=== PATIENT | female | born 1975 | race Caucasian/White ===

== ENCOUNTER 2020-01-19 10:28 | Inpatient (IN) | payer SELFPAY ==
[2020-01-19] VITALS (32 sets, daily range): BP systolic 98–130; BP diastolic 49–83; PULSE 65–87; RESP 16–34; TEMP 36.6–36.8; O2SAT 90–99; BMI 25.2
--- NOTE | 2020-01-19 11:04 | ED_ITS ---
HPI - Female Genitourinary General: Chief complaint: Urogenital-Female Stated complaint: BEHAVIORAL POSSIBLE UTI Time Seen by Provider: 01/19/20 10:30 History of Present Illness: HPI Narrative: This patient is a 44-year-old female who was transferred here from [place] emergency room. She was sent for admission due to a UTI and an elevated white count. She initially presented to the [facility] emergency department due to altered mental status, psychosis, substance abuse. There are multiple affidavits on the chart regarding statements of suicidal and homicidal ideation although the patient currently denies that. She remains confused and inconsistent with her answers. She says that she has used meth and bath salts which were given to her by her . She also is complaining of some abdominal discomfort which she says is related to having diarrhea. She does have some dysuria and vaginal discomfort. She is willing to be admitted for treatment. MD elicited complaint: UTI Review of Systems General: Reports: ROS unobtainable due to mental status (Psychotic) Physical Exam Const: COMMON NORMALS: no acute distress, no limitations and alert EXAM LIMITATIONS: other limitations (Delusional, reported to be having hallucinations at the [facility].) GENERAL APPEARANCE: cooperative, comfortable and other (Fidgety) ORIENTATION/CONSCIOUSNESS: Yes oriented to person, Yes oriented to place, Yes oriented to time and Yes confused HENMT: HEAD & SCALP: normal to inspection FACE & SINUS: normal facial exam Eye: GENERAL EYE: appearance normal, both eyes and all related structures Neck/C-Spine: COMMON NORMALS: supple, no meningeal signs and no JVD Chest: COMMONS NORMALS: normal inspection of the chest Resp: COMMON NORMALS: normal respiratory effort, No use of accessory muscles and clear to auscultation bilaterally AUSCULTATION: clear to auscultation bilaterally Cardio: COMMON NORMALS: no JVD, regular rate, regular rhythm and No murmurs present (Cardio) RATE: regular rate RHYTHM: regular rhythm GI: COMMON NORMALS: Normal to inspection, nondistended, normoactive bowel sounds present, Soft to palpation and non-tender INSPECTION: Yes normal to inspection AUSCULTATION: Yes normoactive bowel sounds PALPATION: Yes Soft to palpation and Yes Tenderness to palpation present (GI) (Mild, diffuse) Back/Pelvis: COMMON NORMALS: thoracic and lumbar spine normal to inspection Extremity: COMMON NORMALS: normal to inspection Neuro: COMMON NORMALS: moves all extremities, no focal motor deficits and no sensory deficits noted SENSORIUM/ORIENTATION: Yes alert, Yes oriented to person, Yes oriented to place and Yes oriented to time MENINGEAL SIGNS: Yes no meningeal signs Psych: COMMON NORMALS: mental status grossly normal, cooperative and normal affect Skin: COMMON NORMALS: no rashes or lesions noted and turgor normal GENERAL SKIN EXAM: no rashes or lesions noted and turgor normal Course Vital Signs: Vital signs: Vital Signs Temperature 97.9 F 01/19/20 20:00 Pulse Rate 58 L 01/20/20 03:00 Respiratory Rate 25 H 01/20/20 03:00 Blood Pressure 99/67 01/20/20 00:00 Pulse Oximetry 95 01/20/20 03:00 MDM - Female MDM Narrative: Medical decision making narrative: Patient with psychotic behavior, most likely related to substance abuse. I do not see any documentation of a prior psychiatric diagnosis. She does have an elevated white count and urinary tract infection. She complains of some abdominal discomfort but her exam is fairly benign. Plan for medical admission with psychiatric follow-up. She is calm and cooperative in the ED. Discharge Plan Discharge Patient Disposition: Admitted As Inpatient Admit Provider: Lorna Redd Discharge Date/Time: 01/19/20 14:09 Coding Level of Care Code ED Art Gallery Director for [facility] Fwd Exam Comprehensive
[2020-01-19] MEDS: sodium chloride 0.9% 1,000 ML 999 ML IV (11:14)
--- NOTE | 2020-01-19 15:00 | PC.NURSE ---
pt admitted to icu 4 at this time dentures in at this time removed by pt personal clothes in bag at nursing station
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
[2020-01-19] MEDS: acetaminophen 325 mg Tablet 650 MG PO (18:53)
[2020-01-20] VITALS (14 sets, daily range): BP systolic 99–171; BP diastolic 67–87; PULSE 58–111; RESP 13–28; TEMP 36.6–37.3; O2SAT 93–98; BMI 25.2
[2020-01-20 05:49] LABS: Basophils # 0.1 10^3/uL (0.0-0.1); Eosinophils # 0.2 10^3/uL (0.0-0.8); Eosinophils % 2.9 %; Hematocrit 39.8 % (37.0-47.0); Hemoglobin 13.2 g/dL (11.5-15.3); Lymphocytes # 2.8 10^3/uL (0.8-4.8); Lymphocytes % 36.3 %; Mean Corpuscular HGB Conc 33.2 g/dL (30.0-36.0); Mean Corpuscular Hemoglobin 30.5 pg (28.0-34.0); Mean Corpuscular Volume 91.9 fL (81-99); Mean Platelet Volume 11.7 fL (7.4-10.4); Monocytes # 0.7 10^3/uL (0.2-0.9); Monocytes % 9.2 %; Neutrophils # 3.91 10^3/uL (1.8-7.7); Neutrophils % 50.2 %; Nucleated Red Blood Cells % 0 %; Platelet Count 197 10^3/cmm (130-400); Red Blood Count 4.33 10^6/uL (4.1-5.3); Red Cell Distribution Width 12.6 % (12.1-15.1); White Blood Count 7.8 10^3/uL (4.0-10.0)
[2020-01-20] MEDS: levoFLOXacin 500 mg Tablet PO (05:52)
[2020-01-20 06:12] LABS: Alanine Aminotransferase 27 U/L (0-33); Albumin Level 3.4 g/dL (3.5-5.2); Alkaline Phosphatase 57 IU/L (35-105); Anion Gap 13.8 (5-19); Blood Urea Nitrogen 12 mg/dL (6-20); Calcium 9.3 mg/dL (8.5-10.5); Carbon Dioxide 24 mmol/L (22-29); Chloride 105 mmol/L (98-107); Globulin 2.6 g/dL (1.3-4.6); Glomerular Filtration Rate 135.3 mL/min (90-130); Glucose 90 mg/dL (65-115); Osmolality Calculated 284 mOsm/kg (285-295); Potassium 3.8 mmol/L (3.5-5.1); Sodium 139 mmol/L (136-145); Total Bilirubin 0.3 mg/dL (0.15-1.2)
[2020-01-20 06:13] LABS: Aspartate Amino Transferase 29 U/L (0-32)
--- NOTE | 2020-01-20 07:34 | PC.NURSE ---
sung. a/o. wei. sitter at bedside.
[2020-01-20] MEDS: morphine 4 mg/mL SDV 1 mL 2 MG IVP (09:59)
--- NOTE | 2020-01-20 10:14 | PC.NURSE ---
c/o pain in right breast, states a lump. examined breast, did not palpate a lump. also c/o vaginal pain. m.s. given for pain.
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
--- NOTE | 2020-01-20 11:11 | XRR_ITS ---
PROCEDURE INFORMATION: Exam: XR Abdomen, 1 View Exam date and time: 01/20/2020 11:37 AM Age: 44 years old Clinical indication: Abdominal tenderness; Prior surgery; Surgery date: 6+ months; Surgery type: Appendectomy, tubal ligation; Patient HX: Low abdomen pain and rlq abdomen pain, possible rectal foreign body; Additional info: Evalute foreign body in rectum TECHNIQUE: Imaging protocol: XR of the abdomen. Views: Frontal supine view of the abdomen. 1 View. COMPARISON: No relevant prior studies available. FINDINGS: Gastrointestinal tract: Prominent stool, suggesting constipation. No significant bowel dilatation. Bones/joints: Mild dextroscoliosis. Soft tissues: No radiopaque foreign body in the visualized abdomen or pelvis. XR/XR abdomen 1V* [id number] IMPRESSION: Prominent stool, suggesting constipation.
--- NOTE | 2020-01-20 13:06 | PC.NURSE ---
resting in bed. not as fidgety as previously.
--- NOTE | 2020-01-20 14:10 | PC.NURSE ---
transferred to npu with security at side. 2 bags of belongings sent.
[2020-01-20] MEDS: fixodent 39 gm Tube 1 APPLIC DENTAL (17:00)
[2020-01-20] MEDS: hyDROXYzine 25 mg Capsule 50 MG PO (21:37)
[2020-01-20] MEDS: trazodone 50 mg Tablet PO (21:38)
[2020-01-20] MEDS: quetiapine 100 mg Tablet PO (21:38)
[2020-01-21 06:00] VITALS: BP 110/72; PULSE 62; RESP 20; TEMP 36.8; O2SAT 95
[2020-01-21] MEDS: quetiapine 25 mg Tablet 50 MG PO (10:23)
[2020-01-21 14:00] VITALS: BP 127/77; PULSE 73; RESP 18; TEMP 37.1; O2SAT 96
[2020-01-21] MEDS: blistex lip oint 7 gm Tube 1 APPLIC TOPICAL ×2 (17:07→21:14)
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
[2020-01-21] MEDS: hyDROXYzine 25 mg Capsule 50 MG PO (21:12)
[2020-01-21] MEDS: trazodone 50 mg Tablet PO (21:12)
[2020-01-21] MEDS: quetiapine 100 mg Tablet PO (21:12)
[2020-01-21 22:00] VITALS: BP 100/65; PULSE 60; RESP 16; TEMP 36.4; O2SAT 94
[2020-01-22 06:00] VITALS: BP 98/63; PULSE 63; RESP 15; TEMP 36.9; O2SAT 96
[2020-01-22] MEDS: blistex lip oint 7 gm Tube 1 APPLIC TOPICAL ×2 (08:40→20:11)
[2020-01-22] MEDS: quetiapine 25 mg Tablet 50 MG PO (08:40)
[2020-01-22] MEDS: fixodent 39 gm Tube 1 APPLIC DENTAL (10:18)
[2020-01-22 13:58] VITALS: BP 98/61; PULSE 84; RESP 18; TEMP 36.7; O2SAT 96
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
[2020-01-22 21:03] VITALS: BP 98/64; PULSE 65; RESP 18; TEMP 36.7; O2SAT 96
[2020-01-22] MEDS: quetiapine 100 mg Tablet PO (21:30)
[2020-01-22] MEDS: trazodone 50 mg Tablet PO (21:30)
--- NOTE | 2020-01-22 21:30 | PC.NURSE ---
PRN TRAZODONE PT REQUESTING SLEEP AID. TRAZODONE 50MG PO ADMINISTERED. WILL MONITOR FOR MEDICATION EFFECTIVENESS.
[2020-01-23 06:00] VITALS: BP 108/71; PULSE 66; RESP 17; TEMP 36.9; O2SAT 93
[2020-01-23] MEDS: quetiapine 25 mg Tablet 50 MG PO (08:15)
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
[2020-01-23 10:02] VITALS: BP 108/71; PULSE 66; RESP 17; TEMP 36.9; O2SAT 93
== END 2020-01-23 11:50 | disposition home or self-care (01) | DRG 897 ==
LOC: ER 11:04 → ICU 12:57 → NP 01-20 14:07
PROVIDERS: Admitting Provider Student in an Organized Health Care Education/Training Program; Visit Provider Student in an Organized Health Care Education/Training Program
DX: F19.10 Other psychoactive substance abuse, uncomplicated (principal); R45.851 Suicidal ideations; N39.0 Urinary tract infection, site not specified; Z91.410 Personal history of adult physical and sexual abuse; R45.850 Homicidal ideations
CPT/HCPCS: 12345; 74018; 80053; 85025; 99284; G0378; J2270; J7030

== ENCOUNTER → 2020-04-25 12:02 | Outpatient (BNVA) | payer SELFPAY | PROVIDERS: Visit Provider Nurse Practitioner Family | DX: Z02.83 Encounter for blood-alcohol and blood-drug test (principal) | CPT/HCPCS: 80307 ==